=== PATIENT | female | born 1950 | race Caucasian/White ===

== ENCOUNTER 2020-10-06 01:01 | Inpatient (IN) | payer OTHER ==
[~2020-10-06] VITALS: Ht 152.4 cm; Wt 49.4 kg
[2020-10-06 01:10] VITALS: BP 164/90
[2020-10-06] MEDS ORDERED: SERTRALINE HCL100 MG PO (01:23)
[2020-10-06] MEDS ORDERED: [UNRECOGNIZED DRUG - REMARK] (01:24)
[2020-10-06 03:44] LABS: HEMATOCRIT 39.1 % (37.0-47.0); MCH 29.9 pg (26.0-34.0); MCHC 33.2 g/dL (28.0-37.0); MCV 90.3 fL (80.0-100.0); MPV 8.8 fl. (7.2-11.1); NUCLEATED RBCS 0 /100WBC; PLATELET COUNT* 213 thou/uL (150-400); RBC 4.33 mil/uL (4.20-5.00); RDW-CV 12.9 % (10.5-14.5); WBC 9.6 thou/uL (4.0-11.0)
[2020-10-06 03:56] LABS: CALCIUM 8.2 mg/dL (8.5-10.1); CREATININE 0.6 mg/dL (0.6-1.3); POTASSIUM 3.9 mmol/L (3.5-5.1)
[2020-10-06 04:00] LABS: URINE BILIRUBIN NEGATIVE (Negative); URINE BLOOD 2+ (Negative); URINE CLARITY CLEAR; URINE COLOR YELLOW; URINE GLUCOSE-RANDOM NEGATIVE (Negative); URINE KETONES NEGATIVE (Negative); URINE LEUKOCYTES-REFLEX NEGATIVE (Negative); URINE NITRITE-REFLEX NEGATIVE (Negative); URINE PROTEIN NEGATIVE (Negative); URINE SPECIFIC GRAVITY 1.015 (1.005-1.030); URINE UROBILINOGEN 0.2 E.U./dl (0.2-1.0)
[2020-10-06 04:00] LABS: ALBUMIN 4.2 g/dL (3.4-5.0); TOTAL BILIRUBIN 0.5 mg/dL (<0.1-1.0)
[2020-10-06 06:02] LABS: ABSOLUTE LYMPHOCYTES 1.1 thou/uL (0.8-5.3); ABSOLUTE MONOCYTES 0.4 thou/uL (0.0-1.2); ABSOLUTE NEUTROPHILS 8.2 thou/uL (1.6-8.1)
[2020-10-06 06:03] LABS: PLATELET ESTIMATE ADEQUATE
[2020-10-06 06:07] LABS: CASTS None Seen /LPF (None Seen); SQUAMOUS 0-3 Few /LPF (0-3); URINE RBC 3-10 Few /HPF (0-2); URINE WBC-REFLEX None Seen /HPF (0-5)
[2020-10-06 06:08] LABS: BACTERIA-REFLEX 1-9 Few /HPF (None Seen); CRYSTALS None Seen /LPF (None Seen)
[2020-10-06 08:00] VITALS: BP 135/76
[2020-10-06 11:42] VITALS: BP 136/82
[2020-10-06 15:33] LABS: PROTIME 10.8 Seconds (9.20-11.50)
[2020-10-06 15:48] VITALS: BP 164/85
--- NOTE | 2020-10-06 16:47 | NUR ---
PT GIVES PERMISSION TO SPEAK TO SISTER, [place], WHO CAN BE REACHED AT [phone] AND [place] (SISTER) WELL.
[2020-10-06 18:30] VITALS: BP 131/83
[2020-10-06 22:30] VITALS: BP 130/72
[2020-10-07 02:30] VITALS: BP 151/85
[2020-10-07 06:00] VITALS: BP 151/85
--- NOTE | 2020-10-07 10:57 | EKG ---
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
--- NOTE | 2020-10-07 13:56 | NUR ---
CM COMPLETED THE INITIAL ASSESSMENT WITH PT. PT INDICATED SHE LIVES IN HOME WITH BROTHER AND FATHER. PT INDICATED SHE "FELL DOWN (1/4) FLIGHT OF STAIRS D/T LONG WITHSTANDING HX WITH BACK PX. PT INDICATED SHE HAD ANSWERED DOOR Loaded Pocket AND "TOLD MY BROTHER I WAS GONNA MAKE IT BACK UP ... I COULD TELL" D/T BACK PX. PT HAS CANE AND W/C. PT INDEPENDENT WITH CARES. PT DENIES HX WITH HH OR SNF. PT INDICATED SHE DOESNT BELIEVE PT WOULD HELP VIA HH OR INPATIENT D/T NEEDING BACK SX. CM TO CONT TO FOLLOW.
[2020-10-07 14:00] VITALS: BP 108/64
[2020-10-07 16:25] VITALS: BP 118/67
--- NOTE | 2020-10-07 17:06 | NUR ---
1600: PATIENT TRANSFERED TO [facility] AT THIS TIME VIA BED ACCOMPANIED BY PACU NURSES POST PARTIAL HIP REPLACEMENT. ORIENTED TO FLOOR AND ROOM SIDE RAILS UP X2. CALL LIGHT WITHIN REACH. INCISION TO RIGHT THIGH/HIP, UNABLE TO ASSESS DUE TO DRESSING. DRESSING C/D/I. LAN SECURELY INPLACE TO DEPENDENT DRAINAGE. 100% ON 2L, NASAL CANNULA. IV TO LEFT FOREARM, PATENT. BANDAGE TO RIGHT FOREARM, PATIENT STATES THAT HER DOG SCRATCHED HER. UNABLE TO ASSESS. SCD'S IN PLACE, INFLATING/DEFLATING WITHOUT DIFFICULTIES. JEREMIAH HOSE ON. PATIENT ABLE "WIGGLE" TOES BILATERALLY. ALERT AND ORIENTED X4. UP WITH ASSIST TO BEDSIDE COMMODE. ALL QUESTIONS AND CONCERNS ADDRESSED AT THIS TIME.
[2020-10-07 20:21] VITALS: BP 132/78
[2020-10-08] VITALS: BP 96/55
[2020-10-08 04:00] VITALS: BP 115/70
--- NOTE | 2020-10-08 04:16 | NUR ---
PT MED/SURG STATUS, A&OX4, VSS ON 2L NC, IV FLUIDS INFUSING ORDERED. URINARY CATHER WILL BE DC'D THIS AM ORDERED. PRN PAIN MEDS REQUESTED AND GIVEN ORDERED. 50% WB TO RLE MAINTAINED. PT SLEEPING WELL, WILL CONTINUE TO MONITOR.
[2020-10-08 04:46] LABS: HEMATOCRIT 33.6 % (37.0-47.0); HEMOGLOBIN 11.5 gm/dL (12.0-15.0)
[2020-10-08 08:00] VITALS: BP 94/57
--- NOTE | 2020-10-08 08:55 | CON ---
[address] [address] CONSULTATION Name: DOMINGO ESTRADA Room: [address] IN M.R.#: [id number] Admission: 10/06/20 Attend Phys: Angel Serrano MD Discharge: Date of : 48 Report #: [id number] THIS REPORT FOR: cc: [facility] - Clinic physician unknown [facility] - Clinic physician unknown Boston Miramontes II DO ~ DATE OF CONSULTATION: 10/06/2020 ORTHOPEDIC CONSULTATION CHIEF COMPLAINT: Right hip pain. HISTORY OF PRESENT ILLNESS: The patient is a 70-year-old female with residual osteoporosis as well as colon cancer, in remission, previously resected. She came after a fall while she was dancing. States she was having alcohol at that time and was also dehydrated. She suffered a right hip fracture, which was x-rayed in the emergency room. The patient does have pain that is managed at this time with rest, does get to a 10/10 with movement. Does previously take Fosamax on a regular basis. The patient denies any significant pain upon movement and will last for a few minutes upon movement. We are consulted for further evaluation. ALLERGIES: None. PAST MEDICAL HISTORY: Diverticulitis, colon cancer. PAST SURGICAL HISTORY: Tubal ligation. MEDICATIONS: Sertraline 100 mg daily. FAMILY HISTORY: Significant for cancer, but other than that, negative. SOCIAL HISTORY: The patient denies any tobacco or illicit drug use. Does drink alcohol on special occasions. REVIEW OF SYSTEMS: A 12-system review of systems was performed and negative except for pertinent positives in the HPI. PHYSICAL EXAMINATION: GENERAL: The patient is alert and oriented, pleasant 70-year-old female. HEENT: Head is normocephalic, atraumatic. Eyes: Pupils equal, round and reactive to light and accommodation. Nose clear without ulcerations. Mouth, moist mucous membranes, no ulcers. NECK: Supple, no JVD, no bruit. CARDIOVASCULAR: Regular rate and rhythm. Cap [place] [address] CONSULTATION Name: ESTRADADOMINGO Room: [address] IN ..#: [id number] Admission: 10/06/20 Attend Phys: Angel Serrano MD Discharge: Date of : 48 Report #: [id number] palpable bilaterally. LUNGS: Clear to auscultation bilaterally. No wheezes or crackles. ABDOMEN: Soft. Bowel sounds are present, no masses, no HSM. EXTREMITIES: The patient's right hip is externally rotated and painful with movement. Positive log roll. SKIN: Normal color. No masses, no ulcerations. PSYCHIATRIC: Appropriate mood and affect. NEUROLOGIC: Alert and conversational. IMPRESSION: History of colon cancer, history of osteoporosis, degenerative arthritis, depression and subcapital right femoral neck fracture. PLAN: At this time, discussed with patient a florencio hip arthroplasty and she would like to proceed. We will keep her n.p.o. after midnight, get her fluids up, manage her medication. At this time, we will hold Lovenox and keep n.p.o. at night. I appreciate this consultation. <ELECTRONICALLY SIGNED> By: Boston Miramontes II, DO 10/08/20 0855 [id number] Miramontes II, DO /nt
--- NOTE | 2020-10-08 08:55 | OP ---
[address] [address] OPERATIVE REPORT Name: DOMINGO ESTRADA Room: [address] IN M.R.#: [id number] Admission: 10/06/20 Attend Phys: Angel Serrano MD Discharge: Date of : 48 Report #: [id number] THIS REPORT FOR: cc: [facility] - Clinic physician unknown [facility] - Clinic physician unknown Boston Miramontes II, DO ~ DATE OF SURGERY: 10/07/2020 PREOPERATIVE DIAGNOSIS: Right hip subcapital hip fracture. POSTOPERATIVE DIAGNOSIS: Right hip subcapital hip fracture. PROCEDURE: Right florencio hip arthroplasty. SURGEON: Boston Miramontes II, DO PHYSICAL DIRECTOR: LONNIE Lo ANESTHESIA: General endotracheal. ESTIMATED BLOOD LOSS: 200 mL ANTIBIOTICS: Two grams Ancef preoperatively. DRAINS: None. COMPLICATIONS: None. CONDITION: The patient stable to recovery room. IMPLANTS USED: Alvares and Nephew hemiarthroplasty, implant size is in the chart. BRIEF HISTORY: The patient did sustain a fall, and was kept overnight to rehydrate as she is dehydrating, was taken to the operative suite. Discussed risks, benefits, complications, indications of surgery. The patient wished to proceed. DESCRIPTION OF PROCEDURE: The patient was taken to the operative suite, placed supine on the operating table and appropriate anesthesia. The patient was placed on the pegboard with the right hip facing superiorly in the lateral position. Bony prominences were well padded. The right leg was sterilely prepped and draped. Surgery began by an anterolateral incision over the right hip. This was carried down through subcutaneous tissue. The tensor fascia was then split along its fibers and retracted with Charnley. The gluteus medius and minimus were reflected off of the femur utilizing electrocautery and tagged. A T capsulotomy was then performed down to the fracture [place] [address] OPERATIVE REPORT Name: DOMINGO ESTRADA Room: [address] IN [facility].#: [id number] Admission: 10/06/20 Attend Phys: Angel Serrano MD Discharge: Date of : 48 Report #: [id number] dislocated and the neck cutting alignment guide was applied. Appropriate neck cut was made and the head was removed. The trial was then performed for the appropriate head size, which showed excellent fit inside the acetabulum and the canal was broached up to appropriate size. The neck trial was then utilized with a +4 head, which showed excellent fit and fill and excellent stability to the hip through all range of motion. Excess bone debris was removed. The final implants were malleted into position and reduced in appropriate fashion. This was shown to have excellent fit and fill and excellent stability of the hip throughout all range of motion with excellent leg length. Final irrigation was once again performed. The T capsulotomy was closed with a #1 Vicryl in [id number] fashion. The gluteus medius and minimus were reapproximated with #5 FiberWire with bone seeking bites to the proximal femur. The tensor fascia was then closed with #1 Vicryl in running fashion. Skin was closed with 2-0 Vicryl and a running Monocryl stitch. Dermabond and sterile dressing applied. The patient transported to recovery in stable condition. COUNTS: Correct. <ELECTRONICALLY SIGNED> By: Boston Miramontes II, DO 10/08/20 0855 [id number] [id number] Miramontes II, DO /nt
[2020-10-08 10:37] LABS: ABSOLUTE LYMPHOCYTES 0.8 thou/uL (0.8-5.3); ABSOLUTE MONOCYTES 0.4 thou/uL (0.0-1.2); ABSOLUTE NEUTROPHILS 3.7 thou/uL (1.6-8.1); BASOPHILS 0.4 %; EOSINOPHILS 0.9 %; HEMATOCRIT 34.2 % (37.0-47.0); HEMOGLOBIN 11.6 gm/dL (12.0-15.0); LYMPHOCYTES 16.2 %; MCH 30.6 pg (26.0-34.0); MONOCYTES 7.5 %; MPV 9.6 fl. (7.2-11.1); NUCLEATED RBCS 0 /100WBC; PLATELET COUNT* 151 thou/uL (150-400); RDW-CV 12.8 % (10.5-14.5)
[2020-10-08 10:44] LABS: ALBUMIN 2.8 g/dL (3.4-5.0); CALCIUM 7.8 mg/dL (8.5-10.1); CREATININE 0.6 mg/dL (0.6-1.3); POTASSIUM 3.5 mmol/L (3.5-5.1); TOTAL BILIRUBIN 0.7 mg/dL (<0.1-1.0); TOTAL PROTEIN 5.6 g/dL (6.4-8.2)
[2020-10-08 12:20] VITALS: BP 103/61
--- NOTE | 2020-10-08 15:33 | NUR ---
PLAN OF CARE: PHYSICIAN INFORMS OF PLAN FOR THE PT TO POSSIBLY D/C TOMORROW WITH HH. CM WILL REMAIN AVAILABLE TO ASSIST AND FOLLOW NEEDED.
[2020-10-08 16:00] VITALS: BP 114/65
--- NOTE | 2020-10-08 17:08 | NUR ---
PATIENT RESTING IN BED WIHT SISTER AT BEDSIDE. INCISION TO RIGHT HIP/THIGH, UNABLE TO ASSESS DUE TO DRESSING. DRESSING C/D/I. C/O MINIMAL PAIN. JEREMIAH HOSE ON. SCD'S IN PLACE, INFLATING/DEFLATING WITHOUT COMPLICATIONS. UP WITH ASSIST X1 WITH WALKER. IV TO LEFT FOREARM WITH 1/2NS INFUSING AT 75ML/HOUR. BED IN LOW/LOCKED POSITION. CALL LIGHT WITHIN REACH. ALL QUESTIONS AND CONCERNS ADDRESSED.
[2020-10-08 20:15] VITALS: BP 112/71
[2020-10-09 00:30] VITALS: BP 113/65
[2020-10-09 04:17] VITALS: BP 121/63
--- NOTE | 2020-10-09 04:51 | NUR ---
PT A&OX4, VSS ON ROOM AIR IV SALINE LOCKED. PT UP WITH ASSIST, 50% WB TO RLE MAINTAINED. MED/SURG STATUS. PRN PAIN MED REQUESTED AND GIVEN ORDERED. PT SLEEPING WELL, WILL CONTINUE TO MONITOR.
[2020-10-09 07:54] VITALS: BP 115/62
--- NOTE | 2020-10-09 10:06 | NUR ---
ASSUMED CARE OF PT THIS AM AROUND 0715- M/S STATUS IN PLACE ORDERED- UPON ASSESSMENT PT NOTED TO BE RESTING IN BED, WATCHING TV- PT A&O X4- CONT OF B/B- ASSIST X1 WITH TRANSFERS- LCTA, RESP EVEN AND UN-LABORED- VSS, O2 SAT 94% ON RA- ABD SOFT/FLAT/NON-TENDER, BS X4 QUADS- LAST BM REPORTED 10/08/20- IV NOTED TO LEFT FA INTACT AND SL- GOOD PO INTAKE NOTED THIS AM WITH BREAKFAST- RIGHT HIP NOTED WITH C/D/I DRESSING- TRACE EDEMA NOTED TO BLE, THTH IN PLACE ORDERED- DENIES ANY PAIN THIS AM- CALL LIGHT AND PERSONAL BELONGINGS WITH IN REACH- HOURLY ROUNDS IN PLACE R/T SAFETY/NEEDS- ALL NEEDS MET AT THIS TIME
[2020-10-09 12:00] VITALS: BP 116/65
--- NOTE | 2020-10-09 15:17 | NUR ---
PLAN OF CARE: PHYSICIAN INFORMS OF PLAN TO CONSULT INPT ARU, THE PT DELCINED GOING TO SNF AT D/C. CM WILL REMAIN AVAILABLE TO ASSIST AND FOLLOW NEEDED.
[2020-10-09 16:00] VITALS: BP 101/61
[2020-10-09 19:16] VITALS: BP 114/67
[2020-10-10] VITALS: BP 149/81
--- NOTE | 2020-10-10 04:11 | NUR ---
PT A&OX4, VSS ON ROOM AIR, IV SALINE LOCKED, UP WITH SBA ASSIST TO BSC. NO PRN PAIN MED REQUESTED THIS SHIFT AT THIS TIME. MED/SURG STATUS. PT SLEEPING WELL, WILL CONTINUE TO MONITOR.
[2020-10-10 04:25] LABS: MCH 31.5 pg (26.0-34.0); MCHC 35.4 g/dL (28.0-37.0); MPV 9.3 fl. (7.2-11.1); RBC 3.49 mil/uL (4.20-5.00); RDW-CV 12.6 % (10.5-14.5); WBC 4.6 thou/uL (4.0-11.0)
[2020-10-10 04:42] LABS: CALCIUM 8.2 mg/dL (8.5-10.1); CREATININE 0.5 mg/dL (0.6-1.3); POTASSIUM 3.7 mmol/L (3.5-5.1)
[2020-10-10 08:00] VITALS: BP 118/77
--- NOTE | 2020-10-10 13:15 | NUR ---
ELIZABETH SPK WITH PT WHO INDICATED SHE IS READY TO GO HOME, TO SEE HER DOGS. PT STATED HER TWO CHILDREN LIVE IN [place] AND HER SISTERS LIVE CLOSE BY AND CHECK ON HER DAILY. PT HAS NO PREFERENCE. CM FAXED REFERAL TO [facility] AT [phone].
[2020-10-10] MEDS ORDERED: XARELTO10 MG PO (14:59)
[2020-10-10 15:55] VITALS: BP 118/77
[2020-10-10 16:55] VITALS: BP 118/77
[2020-10-10 16:59] VITALS: BP 118/77
[2020-10-10 18:02] VITALS: BP 118/77
--- NOTE | 2020-10-10 18:25 | NUR ---
PT DISCHARGED HOME WITH ALL BELONGINGS ACCOMPANIED BY HER SISTER. PT HAS A GOOD UNDERSTANDING OF DISCHARGE INSTRUCTIONS. PT DENIES PAIN ALL DAY AND AT DISCHARGE. PT UNDERSTANDS THAT HOME HEALTH WILL COME OUT STARTING TOMORROW 10/11/20. PT DISCHARGED HOME.
--- NOTE | 2020-10-11 08:50 | NUR ---
RAMÍREZ WITH [facility] STATED THEY ARE UNABLE TO ACCEPT PT. CM FAXED REFERRAL TO [facility]. [phone]
--- NOTE | 2020-10-11 11:59 | NUR ---
cm left 2 vm with pt to get name of pcp. dtr phone number isnt accepting calls at this time.
--- NOTE | 2020-10-14 12:45 | NUR ---
ELIZABETH SPK WITH BABATUNDE AT [facility] TO PROVIDE HER W/PT'S PCP. BABATUNDE STATED SHE SPK WITH PT AND THEY PLAN TO START CARE ON WED. ELIZABETH CRUZ W/KING PT WILL NOT BE NEEDING THEIR [facility].
== END 2020-10-10 18:45 | disposition home health service (06) | DRG 522 ==
LOC: M.ERS 01:01 → M.TBA-ER 06:27 → M.2W 06:27
PROVIDERS: Emergency Medicine; Internal Medicine; Orthopaedic Surgery; ADMIT Internal Medicine; ATTEND Internal Medicine
PROC: 0SRR01Z Replacement of Right Hip Joint, Femoral Surface with Metal Synthetic Substitute, Open Approach (ICD-10-PCS; principal; 2020-10-07)
DX: S72.011A Unspecified intracapsular fracture of right femur, initial encounter for closed fracture (principal); M19.90 Unspecified osteoarthritis, unspecified site; W18.39XA Other fall on same level, initial encounter; F32.9 Major depressive disorder, single episode, unspecified; F41.9 Anxiety disorder, unspecified; M81.0 Age-related osteoporosis without current pathological fracture; Z20.822 Contact with and (suspected) exposure to COVID-19; Z72.89 Other problems related to lifestyle; Y93.89 Activity, other specified; Z79.899 Other long term (current) drug therapy; Y92.89 Other specified places as the place of occurrence of the external cause; Z85.038 Personal history of other malignant neoplasm of large intestine; Y99.8 Other external cause status